=== PATIENT | male | born 1975 | race Two or more races ===

== ENCOUNTER 2023-02-24 07:28 | Outpatient (REF) | payer OTHER, SELFPAY ==
--- NOTE | ~2023-02-24 | MR_ITS ---
MRI OF THE BRAIN WITHOUT IV CONTRAST INDICATION: Tremor. COMPARISON: None available. TECHNIQUE: Multiplanar multisequence MR imaging of the brain was obtained without IV contrast. FINDINGS: There is no hydrocephalus, extra-axial surface collection, or herniation. Chronic encephalomalacia and gliosis within the high parasagittal right greater than left frontoparietal lobe. The major flow voids at the skull base are preserved. There is no acute infarct on diffusion-weighted imaging. There is no intracranial hemorrhage on the gradient recalled echo acquisition. The midline structures are normal. The cerebellar tonsils are normally positioned. The cerebellum and brainstem are normal. The craniocervical junction is normal. Osseous marrow signal intensity is homogenous. The visualized soft tissues are unremarkable. Retention cyst within the left maxillary sinus. The remaining paranasal sinuses and the mastoid air cells are clear. MR/MR head/brain wo con IMPRESSION: No acute intracranial findings. Chronic encephalomalacia and gliosis within the high parasagittal right greater than left frontoparietal lobe.
== END 2023-02-24 07:29 | disposition home or self-care (01) ==
LOC: HO.MRI 07:28
PROVIDERS: PCP Internal Medicine; Visit Provider Psychiatry & Neurology Neurology
DX: R26.1 Paralytic gait (principal)
CPT/HCPCS: 70551